=== PATIENT | female | born 1980 | race Caucasian/White ===

== ENCOUNTER → 2020-06-18 | Outpatient (CLI) | payer MEDICAID ==
--- NOTE | 2020-06-18 10:04 | Diagnostic Imaging Report ---
PROCEDURE: CT head without contrast. TECHNIQUE: Multiple contiguous axial images were obtained through the brain without the use of intravenous contrast. Auto Exposure Controls were utilized during the CT exam to meet ALARA standards for radiation dose reduction. INDICATION: Subarachnoid hemorrhage and intracranial aneurysm There is artifact from metallic embolic coils in the right suprasellar region. Otherwise there is atherosclerotic calcification within distal internal carotid arteries. Ventricles and sulci are within normal limits for size. No hemorrhage is detected. There is no abnormal mass effect or shift of midline structures. Calvarium is intact and the visualized paranasal sinuses are clear. 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 There does appear to be atherosclerotic calcification within distal internal carotid arteries which is advanced for patient's age. No acute abnormality or complication is seen. Dictated by: Dictated on workstation # [id number]
== END ==
LOC: RAD 09:44
PROVIDERS: ATTEND Neurological Surgery
DX: I60.01 Nontraumatic subarachnoid hemorrhage from right carotid siphon and bifurcation (principal); I67.1 Cerebral aneurysm, nonruptured
CPT/HCPCS: 70450

== ENCOUNTER → 2020-12-19 | Outpatient (CLI) | payer MEDICAID ==
--- NOTE | 2020-12-19 11:08 | Diagnostic Imaging Report ---
INDICATION: Palpable lump left breast. Correlation made to diagnostic mammogram earlier today. Sonography interrogation of the area of palpable abnormality upper outer left breast was performed. There is a simple cyst at the 2 o'clock location of the left breast 1 to 2 cm from the nipple measuring 8 mm x 4 mm x 6 mm. No other masses are seen. No solid masses are detected. IMPRESSION: BI-RADS Category 2 Simple subcentimeter left breast cyst at the area of palpable abnormality. The patient may return to routine annual screening mammography. ACR BI-RADS Category 2: Benign findings. Result letter will be mailed to the patient. Note: At least 10% of breast cancer is not imaged by mammography. Dictated by: Dictated on workstation # [id number]
--- NOTE | 2020-12-19 15:52 | Diagnostic Imaging Report ---
Indication: Palpable lump left breast. No prior mammograms are available for comparison. 2-D and 3-D bilateral diagnostic mammography was performed with CAD. A BB marker was placed in the area of palpable abnormality in the upper outer aspect of the left breast. Both breasts are heterogeneously dense, limiting sensitivity of mammography. There is dense tissue at the area of palpable abnormality in the left breast. Further evaluation with ultrasound is recommended. No malignant appearing microcalcifications are seen. There is a intraparenchymal lymph nodes in the upper outer right breast posterior depth. Axillae are unremarkable. IMPRESSION: BI-RADS 0 Dense breast tissue at the area of palpable abnormality left breast. Further evaluation with ultrasound is recommended and will be performed today. ACR BI-RADS Category 0: Incomplete. (Needs additional imaging evaluation). Result letter will be mailed to the patient. Note: At least 10% of breast cancer is not imaged by mammography. Dictated by: Dictated on workstation # [id number]
== END ==
LOC: RAD 10:00
PROVIDERS: ATTEND Nurse Practitioner Family
DX: N60.02 Solitary cyst of left breast (principal)
CPT/HCPCS: 76642; 77066; G0279; 77062